=== PATIENT | male | born 1975 | race Caucasian/White ===

== ENCOUNTER 2016-12-21 10:15 | Emergency (ER) | payer OTHER ==
--- NOTE | 2016-12-21 11:46 | UC ---
Throat Pain/Nasal Robert HPI - HPI Summary HPI Summary: Cough for one week, green sputum, chest and head congestion that is worsening. No fever. Son at home with L AOM and bronchitis. To travel today and concerned he will worsen. [ End ] - History of Current Complaint Chief Complaint: UCRespiratory Stated Complaint: CHEST/NASAL CONGESTION Time Seen by Provider: 12/21/16 11:44 Hx Obtained From: Patient Onset/Duration: Gradual Onset Severity: Mild Cough: Productive - Allergies/Home Medications Allergies/Adverse Reactions: Allergies Allergy/AdvReac Type Severity Reaction Status Date / Time No Known Allergies Allergy Verified 12/21/16 11:33 Home Medications: Home Medications Meloxicam [Vivlodex] 5 mg PO TID 12/21/16 [History Confirmed 12/21/16] Nerve Root Steroid Inj 1 dose INJ ONCE 12/21/16 [History] PMH/Surg Hx/FS Hx/Imm Hx Previously Healthy: Yes Endocrine History Of: Denies: Diabetes Cardiovascular History Of: Denies: Hypertension, Pacemaker/ICD - Surgical History Surgical History: Yes Surgery Procedure, Year, and Place: MICRODISCECTOMY TO L4-L5, HERNIA - Family History Known Family History: Positive: None - Social History Occupation: Employed Full-time - [email or web address] Lives: With Family - 3 kids Alcohol Use: Occasionally Substance Use Type: None Smoking Status (MU): Former Smoker Review of Systems Constitutional: Fatigue Skin: Negative Eyes: Negative ENT: Sore Throat, Ear Ache, Nasal Discharge Respiratory: Cough Cardiovascular: Negative Gastrointestinal: Negative Genitourinary: Negative Motor: Negative Neurovascular: Negative Musculoskeletal: Negative Neurological: Negative Psychological: Negative All Other Systems Reviewed And Are Negative: Yes Physical Exam Triage Information Reviewed: Yes Appearance: Well-Appearing, No Pain Distress, Well-Nourished Vital Signs: Initial Vital Signs Temp 98.1 F 12/21/16 11:26 Pulse 74 12/21/16 11:26 Resp 14 12/21/16 11:26 BP 126/87 12/21/16 11:26 Pulse Ox 99 12/21/16 11:26 Vital Signs Reviewed: Yes Eye Exam: Normal ENT Exam: Normal ENT: Positive: Nasal congestion, TM bulging - Left, TM dull - left, Other: - b/ l maxillary sinus pressure / tenderness. Negative: Tonsillar swelling, Tonsillar exudate Dental Exam: Normal Neck exam: Normal Neck: Positive: 1 Respiratory Exam: Normal Cardiovascular Exam: Normal Musculoskeletal Exam: Normal Neurological Exam: Normal Psychological Exam: Normal Skin Exam: Normal Throat Pain/Nasal Course/Dx - Course Course Of Treatment: Not to start antibiotics unless sx persist or worsen for 3 or more days - Differential Dx/Diagnosis Differential Diagnosis/HQI/PQRI: Laryngitis, Pharyngitis, Tonsillitis, URI Provider Diagnoses: sinusitis Discharge - Discharge Plan Condition: Good Disposition: HOME Referrals: Hector Jones DO [Primary Care Provider] - 3 Days
[2016-12-21 11:58] VITALS: BP 126/87
== END 2016-12-21 12:03 | disposition home or self-care (01) ==
LOC: UCCORT 10:15
DX: J32.9 Chronic sinusitis, unspecified (principal); Z87.891 Personal history of nicotine dependence
CPT/HCPCS: 99212; G0463